=== PATIENT | male | born 1965 | race African-American/Black ===

== ENCOUNTER 2017-02-18 19:28 | Emergency (ER) | payer OTHER ==
[~2017-02-18] VITALS: Ht 188 cm; Wt 104.0 kg
[2017-02-18 19:39] VITALS: BP 137/100
== END 2017-02-18 20:02 | disposition left against medical advice (07) ==
LOC: ER 19:50
DX: F10.129 Alcohol abuse with intoxication, unspecified (principal); Z53.21 Procedure and treatment not carried out due to patient leaving prior to being seen by health care provider

== ENCOUNTER 2022-03-19 14:50 | Emergency (ER) | payer MEDICAID, OTHER ==
[~2022-03-19] VITALS: Ht 185.4 cm; Wt 94.0 kg
[2022-03-19] MEDS ORDERED: ACETAMINOPHEN 325MG TABLET PO ONE (15:45)
[2022-03-19 16:11] LABS: BASOPHILS % 0.7 % (0.0-2.0); EOSINOPHILS % 2.6 % (0.0-5.0); HEMATOCRIT. 45.1 % (42.0-52.0); HEMOGLOBIN. 14.9 g/dL (14.0-18.0); LYMPHOCYTES % 24.9 % (20.0-50.0); MEAN CORPUSCULAR HEMOGLOBIN 30.6 pg (28.0-32.0); MEAN CORPUSCULAR VOLUME 92.3 fL (80.0-94.0); MEAN PLATELET VOLUME 9.7 fl (7.4-10.4); MONOCYTES % 13.8 % (2.0-8.0); PLATELET 185 x1000/uL (130-400); RED BLOOD CELL COUNT 4.88 mill/uL (4.7-6.1); RED CELL DISTRIBUTION WIDTH 13.5 % (11.6-14.6)
[2022-03-19 16:19] LABS: CHLORIDE 108 mEq/L (98-107)
[2022-03-19] MEDS ORDERED: ACETAMINOPHEN 325MG TABLET PO NR (18:05)
[2022-03-19] MEDS ORDERED: ASPIRIN 325MG TABLET PO ONE (18:15)
[2022-03-19] MEDS ORDERED: NAPR-681 MT ×2 (20:15→20:24)
[2022-03-19] MEDS ORDERED: LEVO750T68 MT ×2 (20:15→20:24)
[2022-03-19] MEDS ORDERED: TUSSL MT ×2 (20:15→20:24)
[2022-03-19 20:27] VITALS: BP 144/96
== END 2022-03-19 20:32 | disposition home or self-care (01) ==
LOC: ER 14:50
DX: J18.9 Pneumonia, unspecified organism (principal); E11.9 Type 2 diabetes mellitus without complications; I10 Essential (primary) hypertension; I25.10 Atherosclerotic heart disease of native coronary artery without angina pectoris; I25.2 Old myocardial infarction; Z98.61 Coronary angioplasty status
CPT/HCPCS: 36415; 71045; 80053; 83880; 84484; 85025; 99284

== ENCOUNTER 2022-03-24 13:09 | Emergency (ER) | payer MEDICAID ==
[~2022-03-24] VITALS: Ht 185.4 cm; Wt 102.0 kg
[~2022-03-24 13:09] MED LIST: LEVO750T68 MT; NAPR-681 MT; TUSSL MT
[2022-03-24 13:12] VITALS: BP 134/82
== END 2022-03-24 14:18 | disposition left against medical advice (07) ==
LOC: ER 13:09
DX: Z53.21 Procedure and treatment not carried out due to patient leaving prior to being seen by health care provider (principal)

== ENCOUNTER 2022-09-09 07:54 | Emergency (ER) | payer MEDICAID ==
[~2022-09-09] VITALS: Ht 185.4 cm; Wt 102.3 kg
[2022-09-09] MEDS ORDERED: TETRACAINE 0.5% OPHTH DROPS 4ML BOTHEYE ONE (08:30)
[2022-09-09] MEDS ORDERED: FLUORESCEIN SODIUM 1MG/STRIP BOTHEYE ONE (08:30)
[2022-09-09] MEDS ORDERED: BACITRACIN 15GM TUBE TOP NR (08:45)
[2022-09-09] MEDS ORDERED: IBUPROFEN 600MG TABLET PO NR (10:00)
[2022-09-09] MEDS ORDERED: ERYT1OIN6 EACHEYE (10:02)
[2022-09-09] MEDS ORDERED: BO1 TP (10:02)
[2022-09-09] MEDS ORDERED: IBUP-2029 MT (10:02)
[2022-09-09 10:27] VITALS: BP 152/106
== END 2022-09-09 10:29 | disposition home or self-care (01) ==
LOC: ER 07:54
DX: S06.0X9A Concussion with loss of consciousness of unspecified duration, initial encounter (principal); S80.212A Abrasion, left knee, initial encounter; S80.211A Abrasion, right knee, initial encounter; H11.31 Conjunctival hemorrhage, right eye; I25.2 Old myocardial infarction; I10 Essential (primary) hypertension; E11.9 Type 2 diabetes mellitus without complications; Z00.00 Encounter for general adult medical examination without abnormal findings; Z98.890 Other specified postprocedural states; Y04.0XXA Assault by unarmed brawl or fight, initial encounter; Y93.89 Activity, other specified; Y92.89 Other specified places as the place of occurrence of the external cause; Y99.8 Other external cause status
CPT/HCPCS: 99284

== ENCOUNTER 2023-02-13 12:19 | Emergency (ER) | payer MEDICAID ==
[~2023-02-13] VITALS: Ht 188 cm; Wt 108.9 kg
[~2023-02-13 12:19] MED LIST changes: +BO1 TP; +ERYT1OIN6 EACHEYE; +IBUP-2029 MT
[2023-02-13 12:32] VITALS: O2SAT 100
[2023-02-13] MEDS ORDERED: ATOR20TA65 MT (12:45)
[2023-02-13] MEDS ORDERED: LISI20TA31 MT (12:45)
[2023-02-13] MEDS ORDERED: CLOP-31 MT (12:45)
[2023-02-13] MEDS ORDERED: CLOPIDOGREL 75MG TABLET PO ONE (13:00)
[2023-02-13] MEDS ORDERED: ASPIRIN 81MG TABLET PO ONE (13:00)
[2023-02-13 13:32] VITALS: BP 138/57; PULSE 64; RESP 16; TEMP 98.5
== END 2023-02-13 13:33 | disposition home or self-care (01) ==
LOC: ER 12:19
DX: R07.89 Other chest pain (principal); E78.5 Hyperlipidemia, unspecified; I10 Essential (primary) hypertension; I25.2 Old myocardial infarction; E11.9 Type 2 diabetes mellitus without complications; Z76.0 Encounter for issue of repeat prescription; Z98.890 Other specified postprocedural states; Z98.61 Coronary angioplasty status
CPT/HCPCS: 93005; 99283; Z7610

== ENCOUNTER 2023-06-05 11:47 | Emergency (ER) | payer MEDICAID ==
[~2023-06-05] VITALS: Ht 182.9 cm; Wt 105.0 kg
[~2023-06-05 11:47] MED LIST changes: +ATOR20TA65 MT; +CLOP-31 MT; +LISI20TA31 MT
[2023-06-05 11:59] VITALS: BP 134/74; PULSE 80; RESP 16; TEMP 98.6; O2SAT 100
[2023-06-05] MEDS ORDERED: LISI20TA31 MT (12:34)
[2023-06-05] MEDS ORDERED: ATOR20TA65 MT (12:34)
[2023-06-05] MEDS ORDERED: CLOP-31 MT (12:34)
== END 2023-06-05 12:46 | disposition home or self-care (01) ==
LOC: ER 11:47
DX: I10 Essential (primary) hypertension (principal); Z76.0 Encounter for issue of repeat prescription; F10.229 Alcohol dependence with intoxication, unspecified; E11.9 Type 2 diabetes mellitus without complications; Z79.899 Other long term (current) drug therapy; Y90.0 Blood alcohol level of less than 20 mg/100 ml
CPT/HCPCS: 99281

== ENCOUNTER 2023-06-27 10:13 | Emergency (ER) | payer MEDICAID ==
[~2023-06-27] VITALS: Ht 185.4 cm; Wt 104.0 kg
[2023-06-27 10:15] VITALS: O2SAT 100
[2023-06-27 11:08] LABS: CLARITY URINE CLEAR (CLEAR); COLOR URINE YELLOW (YELLOW); GLUCOSE URINE NEGATIVE (NEGATIVE); KETONES URINE NEGATIVE (NEGATIVE); LEUKOCYTE ESTERASE URINE NEGATIVE (NEGATIVE); NITRITE URINE NEGATIVE (NEGATIVE); OCCULT BLOOD URINE NEGATIVE (NEGATIVE); PROTEIN URINE NEGATIVE (NEGATIVE); SPECIFIC GRAVITY URINE 1.003 (1.005-1.030); UROBILINOGEN URINE 0.2 E.U./dL (0.2-1.0)
[2023-06-27] MEDS: ASPIRIN 81MG TABLET PO ONE (11:27)
[2023-06-27 11:30] LABS: BASOPHILS % 0.7 % (0.0-2.0); DIFFERENTIAL COMMENT 0; EOSINOPHILS % 1.8 % (0.0-5.0); HEMATOCRIT. 44.3 % (42.0-52.0); HEMOGLOBIN. 14.6 g/dL (14.0-18.0); LYMPHOCYTES % 39.4 % (20.0-50.0); MEAN CORPUSCULAR HEMOGLOBIN 30.7 pg (28.0-32.0); MEAN CORPUSCULAR HGB CONC 32.8 g/dL (31.0-37.0); MEAN CORPUSCULAR VOLUME 93.6 fL (80.0-94.0); MEAN PLATELET VOLUME 10.3 fl (7.4-10.4); MONOCYTES % 7.3 % (2.0-8.0); NEUTROPHILS % 50.8 % (40.0-76.0); PLATELET 180 x1000/uL (130-400); RED BLOOD CELL COUNT 4.74 mill/uL (4.7-6.1); RED CELL DISTRIBUTION WIDTH 13.6 % (11.6-14.6); WHITE BLOOD COUNT 4.9 x1000/uL (4.5-11.0)
[2023-06-27 11:36] LABS: CALCIUM 8.9 mg/dL (8.7-10.4); CARBON DIOXIDE 27 mEq/L (21-32); CHLORIDE 108 mEq/L (98-107); CREATININE 1.1 mg/dL (0.6-1.3); GLUCOSE 89 mg/dL (70-105); POTASSIUM 4.5 mEq/L (3.5-5.1); SODIUM 140 mEq/L (136-145); TROPONIN I HIGH SENSITIVITY 12 ng/L (3.0-53); UREA NITROGEN BLOOD 10 mg/dL (9-23)
[2023-06-27 11:40] VITALS: BP 136/93; PULSE 75; RESP 12; TEMP 98.3
[2023-06-27] MEDS ORDERED: ATOR20TA65 MT (11:52)
[2023-06-27] MEDS ORDERED: LISI20TA31 MT (11:52)
[2023-06-27] MEDS ORDERED: CLOP-31 MT (11:52)
== END 2023-06-27 12:46 | disposition home or self-care (01) ==
LOC: ER 10:13
DX: R07.89 Other chest pain (principal); F10.20 Alcohol dependence, uncomplicated; E11.9 Type 2 diabetes mellitus without complications; I10 Essential (primary) hypertension; I25.2 Old myocardial infarction; Z79.899 Other long term (current) drug therapy
CPT/HCPCS: 80048; 81003; 85025; 85610; 84484; 36415; 71045; 93005; 99285; Z7610

== ENCOUNTER 2024-02-15 11:55 | Emergency (ER) | payer MEDICAID ==
[~2024-02-15] VITALS: Ht 185.4 cm; Wt 105.0 kg
[2024-02-15 11:57] VITALS: O2SAT 99
[2024-02-15 12:00] VITALS: BP 132/103; PULSE 91; RESP 18; TEMP 98.8; O2SAT 100
[2024-02-15] MEDS: POLYMYXIN B SULFATE/TMP 10ML BOTTLE BOTHEYE STA (13:15)
[2024-02-15] MEDS ORDERED: TRIMO EACHEYE (13:18)
== END 2024-02-15 13:42 | disposition home or self-care (01) ==
LOC: ER 12:52
DX: H10.89 Other conjunctivitis (principal); I25.2 Old myocardial infarction; I10 Essential (primary) hypertension; E11.9 Type 2 diabetes mellitus without complications; Z98.890 Other specified postprocedural states; Z79.899 Other long term (current) drug therapy
CPT/HCPCS: 99283

== ENCOUNTER 2024-04-23 09:02 | Emergency (ER) | payer MEDICAID ==
[~2024-04-23] VITALS: Ht 185.4 cm; Wt 90.0 kg
[~2024-04-23 09:02] MED LIST changes: +TRIMO EACHEYE
[2024-04-23 09:03] VITALS: O2SAT 96
[2024-04-23] MEDS ORDERED: CYCLOBENZAPRINE 10MG TABLET PO ONE (09:15)
[2024-04-23] MEDS ORDERED: KETOROLAC 30MG/ML VIAL IM ONE (09:15)
[2024-04-23] MEDS ORDERED: ACETAMINOPHEN 325MG TABLET PO ONE (09:15)
[2024-04-23] MEDS: LIDOCAINE 5% PATCH TOP SCH (12:11)
[2024-04-23] MEDS: CYCLOBENZAPRINE 10MG TABLET PO NR (12:11)
[2024-04-23] MEDS: ACETAMINOPHEN 325MG TABLET PO NR (12:11)
[2024-04-23] MEDS: KETOROLAC 30MG/ML VIAL IM NR (12:11)
[2024-04-23 12:25] LABS: CLARITY URINE CLEAR (CLEAR); COLOR URINE DARK YELLOW (YELLOW); GLUCOSE URINE NEGATIVE (NEGATIVE); KETONES URINE TRACE (NEGATIVE); LEUKOCYTE ESTERASE URINE NEGATIVE (NEGATIVE); NITRITE URINE NEGATIVE (NEGATIVE); OCCULT BLOOD URINE NEGATIVE (NEGATIVE); PH URINE 5.5 (4.5-8.0); PROTEIN URINE NEGATIVE (NEGATIVE); SPECIFIC GRAVITY URINE 1.031 (1.005-1.030); UROBILINOGEN URINE 0.2 E.U./dL (0.2-1.0)
[2024-04-23] MEDS ORDERED: NAPR-681 MT (12:29)
[2024-04-23 12:53] VITALS: BP 129/73; PULSE 68; RESP 18; TEMP 36.72516; O2SAT 96
== END 2024-04-23 12:53 | disposition home or self-care (01) ==
LOC: ER 09:44
DX: M54.50 Low back pain, unspecified (principal)
CPT/HCPCS: 99284; 81003; 96372; J1885

== ENCOUNTER 2024-09-20 11:34 | Emergency (ER) | payer MEDICAID ==
[~2024-09-20] VITALS: Ht 188 cm; Wt 105.0 kg
[2024-09-20 11:37] VITALS: O2SAT 98
[2024-09-20 12:17] LABS: BASOPHILS % 0.8 % (0.0-2.0); DIFFERENTIAL COMMENT 0; EOSINOPHILS % 1.3 % (0.0-5.0); HEMATOCRIT. 45.9 % (42.0-52.0); HEMOGLOBIN. 15.2 g/dL (14.0-18.0); LYMPHOCYTES % 37.7 % (20.0-50.0); MEAN CORPUSCULAR HGB CONC 33.1 g/dL (31.0-37.0); MEAN CORPUSCULAR VOLUME 93.7 fL (80.0-94.0); MEAN PLATELET VOLUME 9.5 fl (7.4-10.4); MONOCYTES % 6.5 % (2.0-8.0); NEUTROPHILS % 53.7 % (40.0-76.0); PLATELET 192 x1000/uL (130-400); WHITE BLOOD COUNT 6.7 x1000/uL (4.5-11.0)
[2024-09-20 12:26] LABS: CHLORIDE 111 mEq/L (98-107); POTASSIUM 4.1 mEq/L (3.5-5.1); SODIUM 142 mEq/L (136-145)
[2024-09-20 12:27] LABS: CALCIUM 8.8 mg/dL (8.7-10.4); CARBON DIOXIDE 22 mEq/L (21-32)
[2024-09-20 12:32] LABS: ETHANOL BLOOD 166 mg/dL (<10); GLUCOSE 95 mg/dL (70-105); UREA NITROGEN BLOOD 9 mg/dL (9-23)
[2024-09-20 12:41] LABS: COLOR URINE YELLOW (YELLOW)
[2024-09-20 12:42] LABS: CLARITY URINE CLEAR (CLEAR); GLUCOSE URINE NEGATIVE (NEGATIVE); KETONES URINE NEGATIVE (NEGATIVE); LEUKOCYTE ESTERASE URINE NEGATIVE (NEGATIVE); NITRITE URINE NEGATIVE (NEGATIVE); OCCULT BLOOD URINE NEGATIVE (NEGATIVE); PH URINE 5.5 (4.5-8.0); PROTEIN URINE NEGATIVE (NEGATIVE); SPECIFIC GRAVITY URINE 1.003 (1.005-1.030); UROBILINOGEN URINE 0.2 E.U./dL (0.2-1.0)
[2024-09-20 13:10] LABS: *AMPHETAMINES SCREEN URINE NEGATIVE (NEGATIVE); *BARBITURATES SCREEN URINE NEGATIVE (NEGATIVE); *BENZODIAZEPINES SCREEN URINE NEGATIVE (NEGATIVE)
[2024-09-20 13:11] LABS: *COCAINE SCREEN URINE NEGATIVE (NEGATIVE); CANNABINOID URINE SCREEN NEGATIVE (NEGATIVE); ECSTASY MDMA SCREEN URINE NEGATIVE (NEGATIVE); METHADONE URINE SCREEN NEGATIVE (NEGATIVE); OPIATES URINE SCREEN NEGATIVE (NEGATIVE); PHENCYCLIDINE URINE SCREEN NEGATIVE (NEGATIVE)
[2024-09-20] MEDS: NITROGLYCERIN 0.4MG TABLET SL SL ONE (20:26)
[2024-09-20 20:58] VITALS: BP 136/85; PULSE 89; RESP 16; TEMP 37.1; O2SAT 100
== END 2024-09-20 20:57 ==
LOC: ER 11:34
DX: R45.851 Suicidal ideations (principal); E11.9 Type 2 diabetes mellitus without complications; I10 Essential (primary) hypertension; Z79.1 Long term (current) use of non-steroidal anti-inflammatories (NSAID); Z79.899 Other long term (current) drug therapy; Z20.822 Contact with and (suspected) exposure to COVID-19
CPT/HCPCS: 36415; 80048; 80305; 80320; 81003; 85025; 87426; 99285; G0480

== ENCOUNTER 2024-10-09 14:14 | Emergency (ER) | payer MEDICAID ==
[~2024-10-09] VITALS: Ht 188 cm; Wt 106.0 kg
[2024-10-09 14:28] VITALS: TEMP 36.6; O2SAT 97
[2024-10-09] MEDS ORDERED: ATOR20TA65 MT (14:29)
[2024-10-09] MEDS ORDERED: LISI20TA31 MT (14:29)
[2024-10-09] MEDS ORDERED: CLOP-31 MT (14:29)
[2024-10-09 14:45] VITALS: BP 114/82; PULSE 68; RESP 18; O2SAT 100
== END 2024-10-09 14:46 | disposition home or self-care (01) ==
LOC: ER 14:14
DX: I10 Essential (primary) hypertension (principal); E11.9 Type 2 diabetes mellitus without complications; F32.A Depression, unspecified; I25.2 Old myocardial infarction; Z76.0 Encounter for issue of repeat prescription; Z79.1 Long term (current) use of non-steroidal anti-inflammatories (NSAID); Z98.890 Other specified postprocedural states; Z79.899 Other long term (current) drug therapy
CPT/HCPCS: 99281